=== PATIENT | male | born 2000 | race African-American/Black ===

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

== ENCOUNTER 2020-12-14 22:03 | Emergency (ER) | payer SELFPAY ==
[~2020-12-14] VITALS: Ht 172.7 cm; Wt 104.3 kg
[2020-12-14 23:45] VITALS: BP 140/84
== END 2020-12-15 03:15 | disposition left against medical advice (07) ==
LOC: ER 22:05
DX: R06.02 Shortness of breath (principal); F41.9 Anxiety disorder, unspecified; Z53.21 Procedure and treatment not carried out due to patient leaving prior to being seen by health care provider

== ENCOUNTER 2022-08-17 14:41 | Emergency (ER) | payer MEDICAID, OTHER ==
[~2022-08-17] VITALS: Ht 172.7 cm; Wt 118.0 kg
[2022-08-17] MEDS ORDERED: KETOROLAC TROMETH 60MG/2ML VIAL IM ONE (20:30)
[2022-08-17 21:30] VITALS: BP 142/82
== END 2022-08-17 22:45 | disposition home or self-care (01) ==
LOC: EDSEX 14:41 → ER 14:41 → EDBD 14:41 → ER 21:57
DX: S00.11XA Contusion of right eyelid and periocular area, initial encounter (principal); V89.2XXA Person injured in unspecified motor-vehicle accident, traffic, initial encounter; M25.561 Pain in right knee; Y93.89 Activity, other specified; Y92.89 Other specified places as the place of occurrence of the external cause; Y99.8 Other external cause status
CPT/HCPCS: 70486; 73562; 96372; 99285; J1885